=== PATIENT | female | born 1940 | race Caucasian/White ===

== ENCOUNTER → 2017-01-08 | Outpatient (CLI) | payer MEDICARE ==
[~2017-01-08] MED LIST: ADULT LOW DOSE81 MG PO; ASCORBIC ACID500 MG PO; CELEBREX200 MG PO; LEXAPRO DPS10 MG PO; LOTENSIN10 MG PO; NORCO 5-325 TA1 EACH PO; OMEGA-3 DPS1000 MG PO; PROBIOTIC1 EAC1 PO; THERA1 EACH PO; VITAMIN B125000 MCG PO; VITAMIN D-32000 UNI1 PO
== END | disposition home or self-care (01) ==
LOC: RAD.S 07:03
DX: R93.7 Abnormal findings on diagnostic imaging of other parts of musculoskeletal system (principal); M47.812 Spondylosis without myelopathy or radiculopathy, cervical region; M43.12 Spondylolisthesis, cervical region; M48.02 Spinal stenosis, cervical region; M54.9 Dorsalgia, unspecified